=== PATIENT | female | born 1960 | race Caucasian/White ===

== ENCOUNTER 2016-11-26 19:57 | Emergency (ER) | payer SELFPAY ==
[2016-11-26] MEDS ORDERED: Ondansetron ODT 4 MG TAB ONE (20:43)
[2016-11-26] MEDS ORDERED: Naproxen 500 MG TAB ONE (20:43)
[2016-11-26] MEDS ORDERED: HYDROcodone/Acetaminophen 10/325 mg Tablet ONE (20:43)
--- NOTE | 2016-11-26 21:28 | RAD ---
LEFT SHOULDER THREE VIEWS: History: Injury. Pain. FINDINGS: Proximal humerus fracture without significant displacement. Glenohumeral joint space appears to be p reserved. No definite dislocation. Visualized left ribs are unremarkable. IMPRESSION: Proximal left humerus fracture. POS: [facility]
--- NOTE | 2016-11-26 21:30 | RAD ---
LEFT SHOULDER TWO VIEWS: History: Injury. Pain. FINDINGS: Proximal humerus fracture, without displacement. IMPRESSION: Proximal humerus fracture. POS: [facility]
== END 2016-11-26 20:46 | disposition home or self-care (01) ==
LOC: MADERS 19:57
DX: S42.202A Unspecified fracture of upper end of left humerus, initial encounter for closed fracture (principal); Z86.73 Personal history of transient ischemic attack (TIA), and cerebral infarction without residual deficits; F17.210 Nicotine dependence, cigarettes, uncomplicated; V80.010A Animal-rider injured by fall from or being thrown from horse in noncollision accident, initial encounter
CPT/HCPCS: Q0162

== ENCOUNTER 2018-05-22 12:55 | Emergency (ER) | payer SELFPAY ==
[2018-05-22 13:27] LABS: Bilirubin Negative (Negative); Blood, Urine Large (Negative); Clarity Clear (Clear); Glucose, Urine (Dipstick) Negative (Negative); Leukocyte Negative (Negative); Nitrite Negative (Negative); Protein, Urine (Dipstick) 30 mg/dL (Neg-Trace); Specific Gravity, Urine 1.025 (1.005-1.030); Urobilinogen 0.2 mg/dL (0.2-1.0)
[2018-05-22 13:36] LABS: Bacteria/HPF Rare-Few HPF (None Seen); Squamous Epithelial 0-3 HPF (0-3); WBC/HPF 0-3 HPF (0-3)
[2018-05-22 13:37] LABS: Amphetamine Not Detected (NotDetected); Barbiturates Screen Not Detected (NotDetected); Benzodiazepine Screen Not Detected (NotDetected); Cocaine Metabolite Screen Not Detected (NotDetected); Medtox Control Line Valid? VALID (VALID); Methadone Not Detected (NotDetected); Methamphetamine Not Detected (NotDetected); Opiate Screen Not Detected (NotDetected); Oxycodone Screen Not Detected (NotDetected); Phencyclidine (PCP) Not Detected (NotDetected); THC/Cannabinoid Screen Not Detected (NotDetected); Tricyclic Screen Not Detected (NotDetected)
[2018-05-22] MEDS ORDERED: cloNIDine 0.1 MG TAB ONE (13:38)
[2018-05-22] MEDS ORDERED: Ondansetron ODT 4 MG TAB ONE (13:38)
[2018-05-22 13:52] LABS: #Basophils 0.1 thou/uL (0.0-0.2); #Lymphocytes 0.7 thou/uL (1.20-3.40); #Monocytes 0.6 thou/uL (0.11-0.59); #Neutrophils 5.4 thou/uL (1.40-6.50); %Eosinophils 0.5 % (0.0-10.0); %Lymphocytes 10.7 % (21.0-51.0); %Neutrophils 79.8 % (42.0-75.0); Hemoglobin 14.5 g/dL (12.0-16.0); Mean Corpuscular HGB CONC 32.4 g/dL (32.0-36.0); Mean Corpuscular Hemoglobin 31.3 pg (27.0-31.0); Mean Corpuscular Volume 96.6 fL (78.0-98.0); Mean Platelet Volume 5.9 fL (7.4-10.4); Platelet Count 206 thou/uL (130-400); RBC Distribution Width 14.5 % (11.5-14.5); Red Blood Cell (RBC) Count 4.61 mill/uL (4.20-5.40); White Blood Cell (WBC) Count 6.8 thou/uL (4.8-10.8)
[2018-05-22 14:14] LABS: ALT (SGPT) 27 U/L (8-55); AST (SGOT) 24 U/L (5-34); Alkaline Phosphatase 118 U/L (40-150); Anion Gap 14 mmol/L (10-20); BUN (Urea Nitrogen) 11 mg/dL (9.8-20.1); Bilirubin, Total 0.7 mg/dL (0.2-1.2); Calc. Creatinine Clearance 0 mL/min (70-130); Calcium 9.5 mg/dL (7.8-10.44); Carbon Dioxide 30 mmol/L (22-29); Chloride 100 mmol/L (98-107); Estimated GFR-MDRD 79; Globulin 3.4 g/dL (2.4-3.5); Glucose 189 mg/dL (70-105); Potassium 3.6 mmol/L (3.5-5.1); Protein, Total 7.4 g/dL (6.0-8.3); Sodium 140 mmol/L (136-145)
== END 2018-05-22 14:40 | disposition home or self-care (01) ==
LOC: MADERS 12:55
DX: F41.1 Generalized anxiety disorder (principal); R73.9 Hyperglycemia, unspecified; F17.210 Nicotine dependence, cigarettes, uncomplicated; Z86.73 Personal history of transient ischemic attack (TIA), and cerebral infarction without residual deficits
CPT/HCPCS: 36415; 80053; 80306; 81003; 81015; 85025; 99283; Q0162

== ENCOUNTER 2019-03-05 20:12 | Emergency (ER) | payer SELFPAY | END 2019-03-05 20:59 | disposition short-term general hospital (02) | LOC: MADERS 20:12 | DX: M79.89 Other specified soft tissue disorders (principal); Z86.73 Personal history of transient ischemic attack (TIA), and cerebral infarction without residual deficits; F17.210 Nicotine dependence, cigarettes, uncomplicated; Z79.899 Other long term (current) drug therapy | CPT/HCPCS: 99284 ==

== ENCOUNTER 2019-09-18 10:54 | Emergency (ER) | payer SELFPAY ==
--- NOTE | 2019-09-18 12:35 | CT ---
Exam: Chest CT scan without IV contrast: HISTORY: Injury from a fall several months ago with right rib pain FINDINGS: There is evidence for healed fractures involving the right ninth and 10th ribs. No pneumothorax or pl eural effusion. No evidence for acute rib fracture. Mediastinum is unremarkable. No mediastinal mass or adenopathy. Small hiatal hernia. No pleural effusion or pericardial effusion. There is noted to be very severe dilatation of the left upper renal collecting system with associated hydronephrosis etiology of which is uncertain from this study which only includes the abdomen. Cholel ithiasis without evidence for acute cholecystitis. IMPRESSION: 2 healed right rib fractures. No evidence for acute fracture, pneumothorax, or other acute process in the chest. Very severe left renal hydronephrosis of uncertain etiology. Cholelithiasis without acute cholecystitis.
[2019-09-18] MEDS ORDERED: Morphine 4 MG/ML VIAL ONE (14:17)
--- NOTE | 2019-09-18 14:29 | ULT ---
Renal ultrasound Limited, unilateral left kidney: HISTORY: Abnormal CT COMPARISON: Chest CT scan, 09/18/[address] scan, 11/22/2017 FINDINGS: Left kidney measures 12.3 x 4.0 x 5.8 cm. This exam confirms the severe hydronephrosis seen on the pr ior chest CT. The patient did have hydronephrosis of the left kidney seen on prior abdomen and pelvic CT scan of and evidence for sigmoid colon diverticulitis seen at that time, probably accounting for the hydronephrosis. Follow-up nonemergent abdomen and pelvic CT scan with and without contrast with urography protocol is recommended for further assessment.
[2019-09-18 14:46] LABS: Hemoglobin 16.4 g/dL (12.0-16.0); Mean Corpuscular HGB CONC 31.4 g/dL (32.0-36.0); Mean Corpuscular Hemoglobin 30.4 pg (27.0-31.0); Mean Platelet Volume 6.2 fL (7.4-10.4); Platelet Count 232 thou/uL (130-400); RBC Distribution Width 11.7 % (11.5-14.5); Red Blood Cell (RBC) Count 5.39 mill/uL (4.20-5.40); White Blood Cell (WBC) Count 11.9 thou/uL (4.8-10.8)
[2019-09-18 14:58] LABS: ALT (SGPT) 26 U/L (8-55); AST (SGOT) 28 U/L (5-34); Albumin 4.2 g/dL (3.4-4.8); Alkaline Phosphatase 111 U/L (40-110); Anion Gap 16 mmol/L (10-20); BUN (Urea Nitrogen) 8 mg/dL (9.8-20.1); Bilirubin, Total 0.8 mg/dL (0.2-1.2); Calc. Creatinine Clearance 0 mL/min (70-130); Calcium 9.8 mg/dL (7.8-10.44); Carbon Dioxide 28 mmol/L (23-31); Chloride 92 mmol/L (98-107); Estimated GFR-MDRD 73; Globulin 3.8 g/dL (2.4-3.5); Glucose 125 mg/dL (80-115); Potassium 3.5 mmol/L (3.5-5.1); Sodium 132 mmol/L (136-145)
[2019-09-18 15:24] LABS: Band 18 % (5-11); Lymphocytes 3 % (21-51); MDiff Complete? YES; Monocytes 9 % (0-10); Neutrophil 70 % (42-75); Platelet Morphology Comment Appears Adequate; RBC Morphology Normal
[2019-09-18 17:09] LABS: Bilirubin Negative (Negative); Blood, Urine Large (Negative); Clarity Cloudy (Clear); Glucose, Urine (Dipstick) Negative (Negative); Leukocyte Moderate (Negative); Nitrite Positive (Negative); Protein, Urine (Dipstick) 100 mg/dL (Neg-Trace); Urobilinogen 0.2 mg/dL (Less than 2)
[2019-09-18 17:31] LABS: Bacteria/HPF 1+ HPF (None Seen); Mucous/LPF None Seen LPF (<2+); WBC/HPF Greater Than 50 HPF (0-3)
[2019-09-18] MEDS ORDERED: Sodium Chloride 0.9% 100 ML ONE (18:45)
[2019-09-18] MEDS ORDERED: Sodium Chloride 0.9% 250 ML 250 ML ONE (18:45)
[2019-09-18] MEDS ORDERED: Vancomycin HCl 750 MG VIAL ONE (18:45)
[2019-09-18] MEDS ORDERED: cefTRIAXone\\ROCEPHIN 1 GM VIAL ONE (18:45)
[2019-09-18] MEDS ORDERED: Vancomycin HCl 500 MG VIAL ONE (18:45)
[2019-09-18] MEDS ORDERED: Sodium Chloride 0.9% 2,000 ML ONE (18:45)
[2019-09-18] MEDS ORDERED: Acetaminophen 500 MG TAB ONE (19:14)
== END 2019-09-18 19:30 | disposition short-term general hospital (02) ==
LOC: MADERS 10:54
DX: S20.211A Contusion of right front wall of thorax, initial encounter (principal); N13.30 Unspecified hydronephrosis; N39.0 Urinary tract infection, site not specified; Z86.73 Personal history of transient ischemic attack (TIA), and cerebral infarction without residual deficits; F41.9 Anxiety disorder, unspecified; F17.210 Nicotine dependence, cigarettes, uncomplicated; X50.9XXA Other and unspecified overexertion or strenuous movements or postures, initial encounter
CPT/HCPCS: 71250; 76775; 80053; 81003; 81015; 83605; 83880; 84484; 85025; 87040; 87077; 87149; 87186; 93005; 96361; 96372; 96374; 96375; J0696; J2270; J3370; J3490; J7050

== ENCOUNTER → 2019-09-26 | Day surgery (SDC) | payer SELFPAY ==
[~2019-09-26] MED LIST: Sodium Chloride 0.9% 100 ML BAG ONE; cefTRIAXone\\ROCEPHIN 2 GM VIAL ONE
== END ==
LOC: MADER/OP 11:45
PROVIDERS: ATTEND Internal Medicine Infectious Disease
DX: K57.92 Diverticulitis of intestine, part unspecified, without perforation or abscess without bleeding (principal); R78.81 Bacteremia; Z88.0 Allergy status to penicillin; Z88.1 Allergy status to other antibiotic agents; Z88.2 Allergy status to sulfonamides; Z88.5 Allergy status to narcotic agent
CPT/HCPCS: 96365; J0696; J3490

== ENCOUNTER → 2019-09-27 | Day surgery (SDC) | payer SELFPAY | LOC: MADER/OP 09-26 12:00 | PROVIDERS: ATTEND Internal Medicine Infectious Disease | DX: K57.92 Diverticulitis of intestine, part unspecified, without perforation or abscess without bleeding (principal); R78.81 Bacteremia; Z88.0 Allergy status to penicillin; Z88.1 Allergy status to other antibiotic agents; Z88.2 Allergy status to sulfonamides; Z88.5 Allergy status to narcotic agent | CPT/HCPCS: 96365; J0696; J3490 ==

== ENCOUNTER → 2019-09-28 | Day surgery (SDC) | payer SELFPAY | LOC: MADER/OP 16:57 | PROVIDERS: ATTEND Internal Medicine Infectious Disease | DX: K57.92 Diverticulitis of intestine, part unspecified, without perforation or abscess without bleeding (principal); R78.81 Bacteremia; Z88.0 Allergy status to penicillin; Z88.1 Allergy status to other antibiotic agents; Z88.2 Allergy status to sulfonamides; Z88.5 Allergy status to narcotic agent | CPT/HCPCS: 96365; J0696; J3490 ==

== ENCOUNTER → 2019-09-29 | Day surgery (SDC) | payer SELFPAY ==
[2019-09-29 14:02] LABS: #Basophils 0.2 thou/uL (0.0-0.2); #Eosinphils 0.1 thou/uL (0.0-0.7); #Lymphocytes 2.2 thou/uL (1.20-3.40); #Monocytes 0.9 thou/uL (0.11-0.59); #Neutrophils 6.6 thou/uL (1.40-6.50); %Basophils 1.6 % (0.0-1.0); %Eosinophils 1.1 % (0.0-10.0); %Lymphocytes 22.3 % (21.0-51.0); Hemoglobin 13.1 g/dL (12.0-16.0); Mean Corpuscular HGB CONC 31.6 g/dL (32.0-36.0); Mean Corpuscular Hemoglobin 30.4 pg (27.0-31.0); Mean Corpuscular Volume 96.4 fL (78.0-98.0); Mean Platelet Volume 4.8 fL (7.4-10.4); Platelet Count 681 thou/uL (130-400); Red Blood Cell (RBC) Count 4.32 mill/uL (4.20-5.40); White Blood Cell (WBC) Count 9.9 thou/uL (4.8-10.8)
[2019-09-29 14:15] LABS: ALT (SGPT) 14 U/L (8-55); AST (SGOT) 24 U/L (5-34); Albumin 3.8 g/dL (3.4-4.8); Alkaline Phosphatase 101 U/L (40-110); Anion Gap 15 mmol/L (10-20); BUN (Urea Nitrogen) 10 mg/dL (9.8-20.1); Bilirubin, Total 0.3 mg/dL (0.2-1.2); CRP (Inflammatory) 0.96 mg/dL (= or < 0.5); Calc. Creatinine Clearance 0 mL/min (70-130); Calcium 9.4 mg/dL (7.8-10.44); Carbon Dioxide 27 mmol/L (23-31); Chloride 102 mmol/L (98-107); Estimated GFR-MDRD 79; Globulin 3.8 g/dL (2.4-3.5); Glucose 131 mg/dL (80-115); Potassium 3.5 mmol/L (3.5-5.1); Protein, Total 7.6 g/dL (6.0-8.3); Sodium 140 mmol/L (136-145)
== END ==
LOC: MADER/OP 13:29
PROVIDERS: ATTEND Internal Medicine Infectious Disease
DX: K57.92 Diverticulitis of intestine, part unspecified, without perforation or abscess without bleeding (principal); R78.81 Bacteremia; Z88.0 Allergy status to penicillin; Z88.1 Allergy status to other antibiotic agents; Z88.2 Allergy status to sulfonamides; Z88.5 Allergy status to narcotic agent
CPT/HCPCS: 36415; 80053; 85025; 86140; 96365; J0696; J3490

== ENCOUNTER → 2019-09-30 | Day surgery (SDC) | payer SELFPAY | LOC: MADER/OP 13:38 | PROVIDERS: ATTEND Internal Medicine Infectious Disease | DX: K57.92 Diverticulitis of intestine, part unspecified, without perforation or abscess without bleeding (principal); R78.81 Bacteremia; Z88.0 Allergy status to penicillin; Z88.1 Allergy status to other antibiotic agents; Z88.2 Allergy status to sulfonamides; Z88.5 Allergy status to narcotic agent | CPT/HCPCS: J0696; J3490 ==

== ENCOUNTER → 2019-10-01 | Day surgery (SDC) | payer SELFPAY | LOC: MADER/OP 13:24 | PROVIDERS: ATTEND Internal Medicine Infectious Disease | DX: K57.92 Diverticulitis of intestine, part unspecified, without perforation or abscess without bleeding (principal); R78.81 Bacteremia; Z88.0 Allergy status to penicillin; Z88.1 Allergy status to other antibiotic agents; Z88.2 Allergy status to sulfonamides; Z88.5 Allergy status to narcotic agent | CPT/HCPCS: 96365; J0696; J3490 ==

== ENCOUNTER → 2019-10-02 | Day surgery (SDC) | payer SELFPAY | LOC: MADER/OP 16:04 | PROVIDERS: ATTEND Internal Medicine Infectious Disease | DX: K57.92 Diverticulitis of intestine, part unspecified, without perforation or abscess without bleeding (principal); R78.81 Bacteremia; Z88.0 Allergy status to penicillin; Z88.1 Allergy status to other antibiotic agents; Z88.2 Allergy status to sulfonamides; Z88.5 Allergy status to narcotic agent | CPT/HCPCS: 96365; J0696; J3490 ==

== ENCOUNTER → 2019-10-03 | Day surgery (SDC) | payer SELFPAY | LOC: MADER/OP 19:25 | PROVIDERS: ATTEND Internal Medicine Infectious Disease | DX: K57.92 Diverticulitis of intestine, part unspecified, without perforation or abscess without bleeding (principal); R78.81 Bacteremia; Z88.0 Allergy status to penicillin; Z88.1 Allergy status to other antibiotic agents; Z88.2 Allergy status to sulfonamides; Z88.5 Allergy status to narcotic agent | CPT/HCPCS: 96365; J0696; J3490 ==

== ENCOUNTER → 2019-10-04 | Day surgery (SDC) | payer SELFPAY | LOC: MADER/OP 15:57 | PROVIDERS: ATTEND Internal Medicine Infectious Disease | DX: K57.92 Diverticulitis of intestine, part unspecified, without perforation or abscess without bleeding (principal); R78.81 Bacteremia; Z88.0 Allergy status to penicillin; Z88.1 Allergy status to other antibiotic agents; Z88.2 Allergy status to sulfonamides; Z88.5 Allergy status to narcotic agent | CPT/HCPCS: 96365; J0696; J3490 ==

== ENCOUNTER → 2019-10-05 | Day surgery (SDC) | payer SELFPAY | LOC: MADER/OP 20:33 | PROVIDERS: ATTEND Internal Medicine Infectious Disease | DX: K57.92 Diverticulitis of intestine, part unspecified, without perforation or abscess without bleeding (principal); R78.81 Bacteremia; Z88.0 Allergy status to penicillin; Z88.1 Allergy status to other antibiotic agents; Z88.2 Allergy status to sulfonamides; Z88.5 Allergy status to narcotic agent | CPT/HCPCS: J0696; J3490 ==

== ENCOUNTER → 2019-10-06 | Day surgery (SDC) | payer SELFPAY ==
[2019-10-06 19:54] LABS: #Basophils 0.1 thou/uL (0.0-0.2); #Eosinphils 0.1 thou/uL (0.0-0.7); #Lymphocytes 1.9 thou/uL (1.20-3.40); #Monocytes 0.7 thou/uL (0.11-0.59); #Neutrophils 5.1 thou/uL (1.40-6.50); %Basophils 1.7 % (0.0-1.0); %Eosinophils 1.1 % (0.0-10.0); %Lymphocytes 23.6 % (21.0-51.0); %Monocytes 9.1 % (0.0-10.0); %Neutrophils 64.5 % (42.0-75.0); Mean Corpuscular HGB CONC 32.6 g/dL (32.0-36.0); Mean Corpuscular Hemoglobin 31.4 pg (27.0-31.0); Mean Corpuscular Volume 96.4 fL (78.0-98.0); Mean Platelet Volume 5.6 fL (7.4-10.4); Platelet Count 517 thou/uL (130-400); RBC Distribution Width 12.1 % (11.5-14.5); Red Blood Cell (RBC) Count 4.13 mill/uL (4.20-5.40); White Blood Cell (WBC) Count 7.8 thou/uL (4.8-10.8)
[2019-10-06 20:08] LABS: ALT (SGPT) 18 U/L (8-55); AST (SGOT) 21 U/L (5-34); Albumin 3.9 g/dL (3.4-4.8); Alkaline Phosphatase 95 U/L (40-110); Anion Gap 16 mmol/L (10-20); BUN (Urea Nitrogen) 9 mg/dL (9.8-20.1); Bilirubin, Total Less than 0.2 mg/dL (0.2-1.2); CRP (Inflammatory) Less than 0.50 mg/dL (= or < 0.5); Calc. Creatinine Clearance 0 mL/min (70-130); Calcium 9.5 mg/dL (7.8-10.44); Carbon Dioxide 25 mmol/L (23-31); Chloride 103 mmol/L (98-107); Estimated GFR-MDRD 74; Globulin 3.8 g/dL (2.4-3.5); Glucose 105 mg/dL (80-115); Potassium 3.4 mmol/L (3.5-5.1); Protein, Total 7.7 g/dL (6.0-8.3); Sodium 141 mmol/L (136-145)
== END ==
LOC: MADER/OP 19:23
PROVIDERS: ATTEND Internal Medicine Infectious Disease
DX: K57.92 Diverticulitis of intestine, part unspecified, without perforation or abscess without bleeding (principal); R78.81 Bacteremia; Z88.0 Allergy status to penicillin; Z88.1 Allergy status to other antibiotic agents; Z88.2 Allergy status to sulfonamides; Z88.5 Allergy status to narcotic agent
CPT/HCPCS: 80053; 85025; 86140; J0696; J3490

== ENCOUNTER → 2019-10-08 | Day surgery (SDC) | payer SELFPAY | END | disposition home or self-care (01) | LOC: MADER/OP 16:46 | PROVIDERS: ATTEND Internal Medicine Infectious Disease | DX: R78.81 Bacteremia (principal); Z79.2 Long term (current) use of antibiotics; Z88.0 Allergy status to penicillin; Z88.2 Allergy status to sulfonamides; Z88.5 Allergy status to narcotic agent; Z88.8 Allergy status to other drugs, medicaments and biological substances | CPT/HCPCS: J0696; J3490 ==

== ENCOUNTER → 2019-10-09 | Day surgery (SDC) | payer SELFPAY | LOC: MADER/OP 19:57 | PROVIDERS: ATTEND Internal Medicine Infectious Disease | DX: K57.92 Diverticulitis of intestine, part unspecified, without perforation or abscess without bleeding (principal); R78.81 Bacteremia; Z88.0 Allergy status to penicillin; Z88.1 Allergy status to other antibiotic agents; Z88.2 Allergy status to sulfonamides; Z88.5 Allergy status to narcotic agent | CPT/HCPCS: J0696; J3490 ==

== ENCOUNTER → 2019-10-11 | Day surgery (SDC) | payer SELFPAY | LOC: MADER/OP 11:45 | PROVIDERS: ATTEND Internal Medicine Infectious Disease | DX: K57.92 Diverticulitis of intestine, part unspecified, without perforation or abscess without bleeding (principal); R78.81 Bacteremia; Z88.0 Allergy status to penicillin; Z88.1 Allergy status to other antibiotic agents; Z88.2 Allergy status to sulfonamides; Z88.5 Allergy status to narcotic agent | CPT/HCPCS: 96365; J0696; J3490 ==

== ENCOUNTER → 2019-10-13 | Day surgery (SDC) | payer SELFPAY ==
[2019-10-13 17:27] LABS: ALT (SGPT) 22 U/L (8-55); AST (SGOT) 31 U/L (5-34); Albumin 4.3 g/dL (3.4-4.8); Alkaline Phosphatase 114 U/L (40-110); Anion Gap 19 mmol/L (10-20); BUN (Urea Nitrogen) 10 mg/dL (9.8-20.1); Bilirubin, Total 0.4 mg/dL (0.2-1.2); CRP (Inflammatory) 0.68 mg/dL (= or < 0.5); Calc. Creatinine Clearance 0 mL/min (70-130); Calcium 9.7 mg/dL (7.8-10.44); Carbon Dioxide 22 mmol/L (23-31); Chloride 103 mmol/L (98-107); Estimated GFR-MDRD 89; Glucose 86 mg/dL (80-115); Protein, Total 8.3 g/dL (6.0-8.3); Sodium 140 mmol/L (136-145)
[2019-10-13 17:38] LABS: #Basophils 0.1 thou/uL (0.0-0.2); #Eosinphils 0.2 thou/uL (0.0-0.7); #Lymphocytes 2.9 thou/uL (1.20-3.40); #Monocytes 0.7 thou/uL (0.11-0.59); #Neutrophils 3.6 thou/uL (1.40-6.50); %Basophils 0.9 % (0.0-1.0); %Monocytes 9.8 % (0.0-10.0); %Neutrophils 48.3 % (42.0-75.0); Hemoglobin 13.8 g/dL (12.0-16.0); Mean Corpuscular HGB CONC 31.7 g/dL (32.0-36.0); Mean Corpuscular Hemoglobin 30.7 pg (27.0-31.0); Mean Corpuscular Volume 96.9 fL (78.0-98.0); Mean Platelet Volume 6.7 fL (7.4-10.4); Platelet Count 321 thou/uL (130-400); RBC Distribution Width 12.2 % (11.5-14.5); Red Blood Cell (RBC) Count 4.49 mill/uL (4.20-5.40); White Blood Cell (WBC) Count 7.4 thou/uL (4.8-10.8)
== END ==
LOC: MADER/OP 10-12 21:16
PROVIDERS: ATTEND Internal Medicine Infectious Disease
DX: K57.92 Diverticulitis of intestine, part unspecified, without perforation or abscess without bleeding (principal); R78.81 Bacteremia; Z88.0 Allergy status to penicillin; Z88.1 Allergy status to other antibiotic agents; Z88.2 Allergy status to sulfonamides; Z88.5 Allergy status to narcotic agent
CPT/HCPCS: 36415; 80053; 85025; 86140; 96365; J0696; J3490

== ENCOUNTER → 2019-10-14 | Day surgery (SDC) | payer SELFPAY | LOC: MADER/OP 22:10 | PROVIDERS: ATTEND Internal Medicine Infectious Disease | DX: K57.92 Diverticulitis of intestine, part unspecified, without perforation or abscess without bleeding (principal); R78.81 Bacteremia; Z88.0 Allergy status to penicillin; Z88.1 Allergy status to other antibiotic agents; Z88.2 Allergy status to sulfonamides; Z88.5 Allergy status to narcotic agent | CPT/HCPCS: 96365; J0696; J3490 ==

== ENCOUNTER 2019-12-24 15:27 | Emergency (ER) | payer SELFPAY, OTHER ==
[~2019-12-24 15:27] MED LIST changes: +Iopamidol 370 76% 100 ML VIAL ONE; -Sodium Chloride 0.9% 100 ML BAG ONE; -cefTRIAXone\\ROCEPHIN 2 GM VIAL ONE
[2019-12-24] MEDS ORDERED: Dextrose 5% in Water 250 ML ONE (16:28)
[2019-12-24] MEDS ORDERED: Sodium Chloride 0.9% 1,000 ML ONE (16:28)
[2019-12-24] MEDS ORDERED: Sodium Chloride 0.9% 100 ML ONE (16:28)
[2019-12-24] MEDS ORDERED: Cefepime 2 GM VIAL ONE (16:29)
[2019-12-24] MEDS ORDERED: Acetaminophen 500 MG TAB ONE (16:29)
[2019-12-24 16:31] LABS: #Basophils 0.1 thou/uL (0.0-0.2); #Lymphocytes 1.1 thou/uL (1.20-3.40); #Monocytes 1.4 thou/uL (0.11-0.59); #Neutrophils 11.6 thou/uL (1.40-6.50); %Basophils 0.4 % (0.0-1.0); %Eosinophils 0.1 % (0.0-10.0); %Lymphocytes 7.5 % (21.0-51.0); %Monocytes 9.7 % (0.0-10.0); %Neutrophils 82.2 % (42.0-75.0); Hemoglobin 13.5 g/dL (12.0-16.0); Mean Corpuscular HGB CONC 32.4 g/dL (32.0-36.0); Mean Corpuscular Hemoglobin 31.9 pg (27.0-31.0); Mean Corpuscular Volume 98.3 fL (78.0-98.0); Mean Platelet Volume 5.7 fL (7.4-10.4); Platelet Count 380 thou/uL (130-400); RBC Distribution Width 13.3 % (11.5-14.5); Red Blood Cell (RBC) Count 4.23 mill/uL (4.20-5.40); White Blood Cell (WBC) Count 14.1 thou/uL (4.8-10.8)
[2019-12-24 16:35] LABS: Bilirubin Small (Negative); Blood, Urine Large (Negative); Clarity Clear (Clear); Glucose, Urine (Dipstick) Negative (Negative); Leukocyte Negative (Negative); Nitrite Positive (Negative); Protein, Urine (Dipstick) 30 mg/dL (Neg-Trace); Urobilinogen 0.2 mg/dL (Less than 2)
[2019-12-24 16:37] LABS: ALT (SGPT) 9 U/L (8-55); AST (SGOT) 14 U/L (5-34); Albumin 3.5 g/dL (3.4-4.8); Alkaline Phosphatase 112 U/L (40-110); Anion Gap 15 mmol/L (10-20); BUN (Urea Nitrogen) 7 mg/dL (9.8-20.1); Bilirubin, Total 0.8 mg/dL (0.2-1.2); CK (CPK) 33 U/L (29-168); Calc. Creatinine Clearance 0 mL/min (70-130); Calcium 8.8 mg/dL (7.8-10.44); Carbon Dioxide 25 mmol/L (23-31); Chloride 100 mmol/L (98-107); Estimated GFR-MDRD Greater than 90; Globulin 3.6 g/dL (2.4-3.5); Glucose 129 mg/dL (80-115); Potassium 3.4 mmol/L (3.5-5.1); Protein, Total 7.1 g/dL (6.0-8.3); Sodium 137 mmol/L (136-145)
[2019-12-24 16:41] LABS: Bacteria/HPF Rare-Few HPF (None Seen); RBC/HPF 21-50 HPF (0-3); WBC/HPF 0-3 HPF (0-3)
[2019-12-24 16:42] LABS: Mucous/LPF 2+ LPF (<2+)
[2019-12-24] MEDS ORDERED: Fentanyl 100 MCG/2 ML VIAL ONE (18:05)
--- NOTE | 2019-12-24 21:42 | CT ---
CT ABDOMEN AND PELVIS 12/24/19 COMPARISON: 12/02/19 HISTORY: Left lower quadrant pain, fever, prior colostomy. TECHNIQUE: Axial CT imaging obtained at 5 mm intervals from lung bases through pubic symphysis with intravenous contrast. Coronal and sagittal reformatted imaging obtained. FINDINGS: The imaged lung bases appear grossly unremarkable bilaterally. Cholecystectomy clips are present. No free intraperitoneal air. There is a focal area of hyperenhancement involving the ventral aspect of the left lobe of the liver measuring 5 mm on image 14, stable, likely on the basis of a flash filling hemangioma/vascular lesion . The spleen, pancreas, adrenal glands, and right kidney appear unremarkable. There is a nephrostomy tube on the left terminating in the region of the left renal hilum. There is a colostomy in the left lower quadrant. The lack of enteric contrast media limits detailed a ssessment of the bowel. A suture line is noted within the left lower quadrant on axial image 58, like ly associated with the distal aspect of a Loera's pouch. There is no evidence for small bowel obst ruction. A rim enhancing fluid collection with internal foci of gas and surrounding inflammatory mesenteric fa t stranding is noted in the left lower quadrant anterior to the above described suture line. This flu id collection measures 5.8 x 4.8 x 6.4 cm and is highly suspicious for a left lower quadrant abscess. Within the posterior aspect of the pelvis left of midline on axial image 63 is a 1.9 cm fluid collec tion, likely on the basis of an additional smaller abscess. In addition, there is a 2.0 cm fluid luis alberto ection within the inferior anterior aspect of the pelvis on the left, best seen on axial image 66 med ial to the acetabulum suggesting a third abscess. Subtle fluid density in the posterior right hemipel vis on image 67 measures 1.3 cm and may signify small volume free fluid or an additional developing abscess. The vascular structures of the abdomen/pelvis appear patent. No discrete lymphadenopathy noted within abdomen/pelvis. Osseous structures demonstrate severe multilevel lumbar spine degenerative change with multilevel pro minent disc space narrowing and osteophyte formation. No worrisome lytic or blastic bone lesion. IMPRESSION: The patient is status post left lower quadrant colostomy with Loera's pouch. There is a gas contain ing rim enhancing fluid collection within the left lower quadrant measuring up to 6.4 cm, consistent with left lower quadrant abscess. There are three additional small fluid collections within the pelvi s suggesting additional developing abscesses. The largest fluid collection appears amenable to CT devon dance drainage while the other three fluid collections at this point are too small for percutaneous d rainage. Recommend surgical consultation. POS: [facility]
== END 2019-12-24 19:35 | disposition short-term general hospital (02) ==
LOC: MADERS 15:27
DX: K65.1 Peritoneal abscess (principal); F17.210 Nicotine dependence, cigarettes, uncomplicated; F41.9 Anxiety disorder, unspecified; Z86.73 Personal history of transient ischemic attack (TIA), and cerebral infarction without residual deficits; Z79.899 Other long term (current) drug therapy
CPT/HCPCS: 74177; 80053; 81003; 81015; 82550; 83605; 85025; 87040; 87086; 96365; 96366; 96367; 96375; J0692; J3010; J3370; J3490; J7050; J7070; Q9967

== ENCOUNTER → 2020-01-01 | Day surgery (SDC) | payer SELFPAY ==
[~2020-01-01] MED LIST changes: +Ampicillin/Sulbactam 3 GM VIAL ONE; -Iopamidol 370 76% 100 ML VIAL ONE; +Sodium Chloride 0.9% 100 ML BAG ONE
== END ==
LOC: MADER/OP 19:56
PROVIDERS: ATTEND Family Medicine
DX: L02.211 Cutaneous abscess of abdominal wall (principal); Z88.0 Allergy status to penicillin; Z88.1 Allergy status to other antibiotic agents; Z88.2 Allergy status to sulfonamides; Z88.5 Allergy status to narcotic agent
CPT/HCPCS: J0295; J3490

== ENCOUNTER → 2020-01-01 | Day surgery (SDC) | payer SELFPAY | LOC: MADER/OP 13:20 | PROVIDERS: ATTEND Internal Medicine Infectious Disease | DX: L02.211 Cutaneous abscess of abdominal wall (principal); Z88.0 Allergy status to penicillin; Z88.1 Allergy status to other antibiotic agents; Z88.2 Allergy status to sulfonamides; Z88.5 Allergy status to narcotic agent | CPT/HCPCS: J0295; J1642; J3490 ==

== ENCOUNTER → 2020-01-01 | Day surgery (SDC) | payer SELFPAY | LOC: MADER/OP 07:10 | PROVIDERS: ATTEND Internal Medicine Infectious Disease | DX: L02.211 Cutaneous abscess of abdominal wall (principal); Z88.0 Allergy status to penicillin; Z88.1 Allergy status to other antibiotic agents; Z88.2 Allergy status to sulfonamides; Z88.5 Allergy status to narcotic agent | CPT/HCPCS: J0295; J1642; J3490 ==

== ENCOUNTER → 2020-01-02 | Day surgery (SDC) | payer SELFPAY | LOC: MADER/OP 09:57 | PROVIDERS: ATTEND Internal Medicine Infectious Disease | DX: L02.211 Cutaneous abscess of abdominal wall (principal); Z88.0 Allergy status to penicillin; Z88.1 Allergy status to other antibiotic agents; Z88.2 Allergy status to sulfonamides; Z88.5 Allergy status to narcotic agent | CPT/HCPCS: J0295; J1642; J3490 ==

== ENCOUNTER → 2020-01-02 | Day surgery (SDC) | payer SELFPAY | LOC: MADER/OP 03:48 | PROVIDERS: ATTEND Family Medicine | DX: L02.211 Cutaneous abscess of abdominal wall (principal); Z88.0 Allergy status to penicillin; Z88.1 Allergy status to other antibiotic agents; Z88.2 Allergy status to sulfonamides; Z88.5 Allergy status to narcotic agent | CPT/HCPCS: J0295; J3490 ==

== ENCOUNTER → 2020-01-08 | Day surgery (SDC) | payer SELFPAY ==
[~2020-01-08] MED LIST changes: -Ampicillin/Sulbactam 3 GM VIAL ONE; -Sodium Chloride 0.9% 100 ML BAG ONE; +Vancomycin 1.5 GRAM/300 ML BAG ONE
== END ==
LOC: MADER/OP 15:45
PROVIDERS: ATTEND Internal Medicine Infectious Disease
DX: L02.211 Cutaneous abscess of abdominal wall (principal); Z88.0 Allergy status to penicillin; Z88.1 Allergy status to other antibiotic agents; Z88.2 Allergy status to sulfonamides; Z88.5 Allergy status to narcotic agent
CPT/HCPCS: J3370

== ENCOUNTER → 2020-01-09 | Day surgery (SDC) | payer SELFPAY | LOC: MADER/OP 17:01 | PROVIDERS: ATTEND Internal Medicine Infectious Disease | DX: L02.211 Cutaneous abscess of abdominal wall (principal); Z88.0 Allergy status to penicillin; Z88.1 Allergy status to other antibiotic agents; Z88.2 Allergy status to sulfonamides; Z88.5 Allergy status to narcotic agent | CPT/HCPCS: J3370 ==

== ENCOUNTER → 2020-01-10 | Day surgery (SDC) | payer SELFPAY | LOC: MADER/OP 18:19 | PROVIDERS: ATTEND Internal Medicine Infectious Disease | DX: L02.211 Cutaneous abscess of abdominal wall (principal); Z88.0 Allergy status to penicillin; Z88.1 Allergy status to other antibiotic agents; Z88.2 Allergy status to sulfonamides; Z88.5 Allergy status to narcotic agent | CPT/HCPCS: J3370 ==

== ENCOUNTER → 2020-01-12 | Day surgery (SDC) | payer SELFPAY | LOC: MADER/OP 18:38 | PROVIDERS: ATTEND Internal Medicine Infectious Disease | DX: L02.211 Cutaneous abscess of abdominal wall (principal); Z88.0 Allergy status to penicillin; Z88.1 Allergy status to other antibiotic agents; Z88.2 Allergy status to sulfonamides; Z88.5 Allergy status to narcotic agent | CPT/HCPCS: J3370 ==

== ENCOUNTER → 2020-01-13 | Day surgery (SDC) | payer SELFPAY | LOC: MADER/OP 14:54 | PROVIDERS: ATTEND Internal Medicine Infectious Disease | DX: L02.211 Cutaneous abscess of abdominal wall (principal); Z88.0 Allergy status to penicillin; Z88.1 Allergy status to other antibiotic agents; Z88.2 Allergy status to sulfonamides; Z88.5 Allergy status to narcotic agent | CPT/HCPCS: J3370 ==

== ENCOUNTER → 2020-01-15 | Day surgery (SDC) | payer SELFPAY | LOC: MADER/OP 16:29 | PROVIDERS: ATTEND Internal Medicine Infectious Disease | DX: L02.211 Cutaneous abscess of abdominal wall (principal); Z88.0 Allergy status to penicillin; Z88.1 Allergy status to other antibiotic agents; Z88.2 Allergy status to sulfonamides; Z88.5 Allergy status to narcotic agent | CPT/HCPCS: J3370 ==

== ENCOUNTER → 2020-01-16 | Day surgery (SDC) | payer SELFPAY | LOC: MADER/OP 19:53 | PROVIDERS: ATTEND Internal Medicine Infectious Disease | DX: L02.211 Cutaneous abscess of abdominal wall (principal); Z88.0 Allergy status to penicillin; Z88.1 Allergy status to other antibiotic agents; Z88.2 Allergy status to sulfonamides; Z88.5 Allergy status to narcotic agent | CPT/HCPCS: J3370 ==

== ENCOUNTER → 2020-01-17 | Day surgery (SDC) | payer SELFPAY | LOC: MADER/OP 16:45 | PROVIDERS: ATTEND Internal Medicine Infectious Disease | DX: L02.211 Cutaneous abscess of abdominal wall (principal); Z88.0 Allergy status to penicillin; Z88.1 Allergy status to other antibiotic agents; Z88.2 Allergy status to sulfonamides; Z88.5 Allergy status to narcotic agent | CPT/HCPCS: J3370 ==

== ENCOUNTER → 2020-01-18 | Day surgery (SDC) | payer SELFPAY | LOC: MADER/OP 12:15 | PROVIDERS: ATTEND Internal Medicine Infectious Disease | DX: L02.211 Cutaneous abscess of abdominal wall (principal); Z88.0 Allergy status to penicillin; Z88.1 Allergy status to other antibiotic agents; Z88.2 Allergy status to sulfonamides; Z88.5 Allergy status to narcotic agent | CPT/HCPCS: J3370 ==

== ENCOUNTER → 2020-01-19 | Day surgery (SDC) | payer SELFPAY ==
[2020-01-19 21:58] LABS: #Basophils 0.2 thou/uL (0.0-0.2); #Eosinphils 0.2 thou/uL (0.0-0.7); #Monocytes 1.2 thou/uL (0.11-0.59); #Neutrophils 8.1 thou/uL (1.40-6.50); %Basophils 1.3 % (0.0-1.0); %Eosinophils 1.3 % (0.0-10.0); %Lymphocytes 23.7 % (21.0-51.0); %Monocytes 9.3 % (0.0-10.0); %Neutrophils 64.4 % (42.0-75.0); Hemoglobin 13.4 g/dL (12.0-16.0); Mean Corpuscular HGB CONC 31.8 g/dL (32.0-36.0); Mean Corpuscular Hemoglobin 30.3 pg (27.0-31.0); Mean Corpuscular Volume 95.3 fL (78.0-98.0); Mean Platelet Volume 6.3 fL (7.4-10.4); Platelet Count 445 thou/uL (130-400); RBC Distribution Width 12.9 % (11.5-14.5); Red Blood Cell (RBC) Count 4.44 mill/uL (4.20-5.40); White Blood Cell (WBC) Count 12.6 thou/uL (4.8-10.8)
[2020-01-19 22:10] LABS: Vancomycin, Trough 5.6 ug/mL
[2020-01-19 22:44] LABS: ALT (SGPT) 20 U/L (8-55); AST (SGOT) 20 U/L (5-34); Albumin 4.3 g/dL (3.4-4.8); Alkaline Phosphatase 101 U/L (40-110); Anion Gap 16 mmol/L (10-20); BUN (Urea Nitrogen) 9 mg/dL (9.8-20.1); Bilirubin, Total 0.2 mg/dL (0.2-1.2); CRP (Inflammatory) 2.67 mg/dL (= or < 0.5); Calc. Creatinine Clearance 0 mL/min (70-130); Calcium 10.3 mg/dL (7.8-10.44); Carbon Dioxide 25 mmol/L (23-31); Chloride 101 mmol/L (98-107); Estimated GFR-MDRD 88; Globulin 4.2 g/dL (2.4-3.5); Glucose 92 mg/dL (80-115); Potassium 4.4 mmol/L (3.5-5.1); Protein, Total 8.5 g/dL (6.0-8.3); Sodium 138 mmol/L (136-145)
== END ==
LOC: MADLAB 20:24
PROVIDERS: ATTEND Internal Medicine Infectious Disease
DX: L02.211 Cutaneous abscess of abdominal wall (principal); Z88.0 Allergy status to penicillin; Z88.1 Allergy status to other antibiotic agents; Z88.2 Allergy status to sulfonamides; Z88.5 Allergy status to narcotic agent
CPT/HCPCS: 80053; 80202; 85025; 86140; J3370

== ENCOUNTER → 2020-01-22 | Day surgery (SDC) | payer SELFPAY | LOC: MADER/OP 08:30 | PROVIDERS: ATTEND Internal Medicine Infectious Disease | DX: L02.211 Cutaneous abscess of abdominal wall (principal); Z88.0 Allergy status to penicillin; Z88.1 Allergy status to other antibiotic agents; Z88.2 Allergy status to sulfonamides; Z88.5 Allergy status to narcotic agent | CPT/HCPCS: J3370 ==

== ENCOUNTER → 2020-01-24 | Day surgery (SDC) | payer SELFPAY | LOC: MADER/OP 11:32 | PROVIDERS: ATTEND Internal Medicine Infectious Disease | DX: L02.211 Cutaneous abscess of abdominal wall (principal); Z88.0 Allergy status to penicillin; Z88.1 Allergy status to other antibiotic agents; Z88.2 Allergy status to sulfonamides; Z88.5 Allergy status to narcotic agent | CPT/HCPCS: J3370 ==

== ENCOUNTER → 2020-01-25 | Day surgery (SDC) | payer SELFPAY | LOC: MADER/OP 14:49 | PROVIDERS: ATTEND Family Medicine | DX: L02.211 Cutaneous abscess of abdominal wall (principal); Z88.0 Allergy status to penicillin; Z88.1 Allergy status to other antibiotic agents; Z88.2 Allergy status to sulfonamides; Z88.5 Allergy status to narcotic agent | CPT/HCPCS: J3370 ==

== ENCOUNTER → 2020-01-26 | Day surgery (SDC) | payer SELFPAY ==
[2020-01-26 15:45] LABS: #Basophils 0.1 thou/uL (0.0-0.2); #Neutrophils 12.8 thou/uL (1.40-6.50); %Basophils 0.6 % (0.0-1.0); %Eosinophils 0.3 % (0.0-10.0); %Lymphocytes 12.3 % (21.0-51.0); %Monocytes 6.4 % (0.0-10.0); %Neutrophils 80.4 % (42.0-75.0); Hemoglobin 13.1 g/dL (12.0-16.0); Mean Corpuscular HGB CONC 31.4 g/dL (32.0-36.0); Mean Corpuscular Volume 95.4 fL (78.0-98.0); Platelet Count 309 thou/uL (130-400); RBC Distribution Width 12.8 % (11.5-14.5); Red Blood Cell (RBC) Count 4.37 mill/uL (4.20-5.40); White Blood Cell (WBC) Count 15.9 thou/uL (4.8-10.8)
[2020-01-26 15:55] LABS: Vancomycin, Trough 8.2 ug/mL
[2020-01-26 16:00] LABS: ALT (SGPT) 12 U/L (8-55); AST (SGOT) 15 U/L (5-34); Alkaline Phosphatase 112 U/L (40-110); Anion Gap 15 mmol/L (10-20); BUN (Urea Nitrogen) 12 mg/dL (9.8-20.1); Bilirubin, Total 0.3 mg/dL (0.2-1.2); Calc. Creatinine Clearance 0 mL/min (70-130); Calcium 10.1 mg/dL (7.8-10.44); Carbon Dioxide 26 mmol/L (23-31); Chloride 100 mmol/L (98-107); Estimated GFR-MDRD 65; Globulin 3.8 g/dL (2.4-3.5); Glucose 110 mg/dL (80-115); Protein, Total 7.8 g/dL (6.0-8.3); Sodium 137 mmol/L (136-145)
== END ==
LOC: MADER/OP 15:06
PROVIDERS: ATTEND Internal Medicine Infectious Disease
DX: L02.211 Cutaneous abscess of abdominal wall (principal); Z88.0 Allergy status to penicillin; Z88.1 Allergy status to other antibiotic agents; Z88.2 Allergy status to sulfonamides; Z88.5 Allergy status to narcotic agent
CPT/HCPCS: 80053; 80202; 85025; 86140; 87086; J3370

== ENCOUNTER → 2020-01-27 | Day surgery (SDC) | payer SELFPAY | LOC: MADER/OP 16:43 | PROVIDERS: ATTEND Internal Medicine Infectious Disease | DX: L02.211 Cutaneous abscess of abdominal wall (principal); Z88.0 Allergy status to penicillin; Z88.1 Allergy status to other antibiotic agents; Z88.2 Allergy status to sulfonamides; Z88.5 Allergy status to narcotic agent | CPT/HCPCS: J3370 ==

== ENCOUNTER → 2020-01-30 | Day surgery (SDC) | payer SELFPAY | LOC: MADER/OP 20:43 | PROVIDERS: ATTEND Internal Medicine Infectious Disease | DX: L02.211 Cutaneous abscess of abdominal wall (principal); Z88.0 Allergy status to penicillin; Z88.1 Allergy status to other antibiotic agents; Z88.2 Allergy status to sulfonamides; Z88.5 Allergy status to narcotic agent | CPT/HCPCS: J3370 ==

== ENCOUNTER → 2020-02-02 | Day surgery (SDC) | payer SELFPAY ==
[2020-02-02 18:16] LABS: #Basophils 0.1 thou/uL (0.0-0.2); #Lymphocytes 1.6 thou/uL (1.20-3.40); #Neutrophils 10.1 thou/uL (1.40-6.50); %Basophils 0.7 % (0.0-1.0); %Eosinophils 0.3 % (0.0-10.0); %Lymphocytes 12.7 % (21.0-51.0); %Monocytes 7.7 % (0.0-10.0); %Neutrophils 78.6 % (42.0-75.0); Hemoglobin 13.5 g/dL (12.0-16.0); Mean Corpuscular HGB CONC 31.8 g/dL (32.0-36.0); Mean Corpuscular Volume 94.5 fL (78.0-98.0); Mean Platelet Volume 5.6 fL (7.4-10.4); Platelet Count 384 thou/uL (130-400); RBC Distribution Width 12.5 % (11.5-14.5); White Blood Cell (WBC) Count 12.8 thou/uL (4.8-10.8)
[2020-02-02 18:27] LABS: Vancomycin, Trough 9.3 ug/mL
[2020-02-02 18:32] LABS: ALT (SGPT) 15 U/L (8-55); AST (SGOT) 19 U/L (5-34); Alkaline Phosphatase 111 U/L (40-110); Anion Gap 15 mmol/L (10-20); BUN (Urea Nitrogen) 14 mg/dL (9.8-20.1); Bilirubin, Total 0.3 mg/dL (0.2-1.2); CRP (Inflammatory) 1.47 mg/dL (= or < 0.5); Calc. Creatinine Clearance 0 mL/min (70-130); Calcium 9.9 mg/dL (7.8-10.44); Carbon Dioxide 27 mmol/L (23-31); Chloride 99 mmol/L (98-107); Estimated GFR-MDRD 84; Globulin 3.9 g/dL (2.4-3.5); Glucose 105 mg/dL (80-115); Potassium 3.9 mmol/L (3.5-5.1); Protein, Total 7.9 g/dL (6.0-8.3); Sodium 137 mmol/L (136-145)
== END ==
LOC: MADLAB 00:43
PROVIDERS: ATTEND Internal Medicine Infectious Disease
DX: L02.211 Cutaneous abscess of abdominal wall (principal); Z88.0 Allergy status to penicillin; Z88.1 Allergy status to other antibiotic agents; Z88.2 Allergy status to sulfonamides; Z88.5 Allergy status to narcotic agent
CPT/HCPCS: 36415; 80053; 80202; 85025; 86140; J3370

== ENCOUNTER → 2020-02-02 | Day surgery (SDC) | payer SELFPAY | LOC: MADLAB 17:42 | PROVIDERS: ATTEND Internal Medicine Infectious Disease | DX: L02.211 Cutaneous abscess of abdominal wall (principal); Z88.0 Allergy status to penicillin; Z88.1 Allergy status to other antibiotic agents; Z88.2 Allergy status to sulfonamides; Z88.5 Allergy status to narcotic agent | CPT/HCPCS: J3370 ==

== ENCOUNTER 2021-04-05 00:17 | Emergency (ER) | payer OTHER ==
[2021-04-05 15:30] LABS: SARS-CoV-2 PCR by NAA DETECTED (NotDetected)
== END 2021-04-05 00:50 | disposition home or self-care (01) ==
LOC: MADERS 00:17
DX: U07.1 COVID-19 (principal); F17.210 Nicotine dependence, cigarettes, uncomplicated
CPT/HCPCS: 99283; U0003; U0005

== ENCOUNTER 2021-05-21 20:44 | Emergency (ER) | payer OTHER ==
[2021-05-21] MEDS ORDERED: predniSONE 20 MG TAB ONE (22:09)
[2021-05-21] MEDS ORDERED: Albuterol Sulfate 2.5 mg/0.5 ml Neb ONE (22:09)
[2021-05-21] MEDS ORDERED: predniSONE 10 MG TAB ONE (22:09)
[2021-05-21] MEDS ORDERED: Ipratropium Bromide 2.5 ml Neb ONE (22:15)
[2021-05-22] MEDS ORDERED: Albuterol 200 PUFF (6.7GM INHALER) ONE ×2 (00:18→00:26)
== END 2021-05-22 00:32 | disposition home or self-care (01) ==
LOC: MADERS 20:44
DX: J42 Unspecified chronic bronchitis (principal); F17.210 Nicotine dependence, cigarettes, uncomplicated; Z86.73 Personal history of transient ischemic attack (TIA), and cerebral infarction without residual deficits
CPT/HCPCS: 71046; J7512; J7611

== ENCOUNTER 2023-05-25 12:34 | Inpatient (IN) | payer MEDICARE ==
[2023-05-25] MEDS ORDERED: Morphine 2 MG/ML SYRINGE SLOW IVP PRN (16:14)
[2023-05-25] MEDS: Ascorbic Acid 500 mg Chewable Tablet PO SCH (20:29)
[2023-05-25] MEDS: Ferrous Sulfate 325 MG TAB PO SCH (20:30)
[2023-05-25] MEDS: Aspirin 81 mg Enteric Coated Tablet PO SCH (20:30)
[2023-05-25] MEDS: Gabapentin 100 MG CAP PO SCH (20:30)
[2023-05-25] MEDS: Ibuprofen 200 MG TAB PO PRN (20:33)
[2023-05-25] MEDS: Morphine 2 MG/ML VIAL IM PRN (21:21)
[2023-05-26] MEDS: ALPRAZolam 0.25 MG TAB PO PRN ×2 (08:06→20:22)
[2023-05-26] MEDS: Gabapentin 100 MG CAP PO SCH ×4 (09:54→20:31)
[2023-05-26] MEDS: Aspirin 81 mg Enteric Coated Tablet PO SCH ×2 (09:54→20:22)
[2023-05-26] MEDS: Ascorbic Acid 500 mg Chewable Tablet PO SCH ×2 (09:54→20:22)
[2023-05-26] MEDS: Ferrous Sulfate 325 MG TAB PO SCH ×3 (09:55→20:32)
[2023-05-26] MEDS: traMADol HCl 50 MG TAB PO PRN (10:32)
[2023-05-26] MEDS: Bisacodyl 5 MG TAB PO PRN (11:59)
[2023-05-26] MEDS: Ondansetron ODT 4 MG TAB PO PRN ×2 (13:19→23:13)
[2023-05-26] MEDS: Ibuprofen 200 MG TAB PO PRN (17:55)
[2023-05-26] MEDS: Morphine 2 MG/ML VIAL IM PRN (23:13)
[2023-05-27] MEDS: Gabapentin 100 MG CAP PO SCH ×3 (09:31→20:01)
[2023-05-27] MEDS: Ferrous Sulfate 325 MG TAB PO SCH ×2 (09:31→20:00)
[2023-05-27] MEDS: Aspirin 81 mg Enteric Coated Tablet PO SCH ×2 (09:31→20:03)
[2023-05-27] MEDS: Ascorbic Acid 500 mg Chewable Tablet PO SCH ×2 (09:32→20:02)
[2023-05-27] MEDS ORDERED: Albuterol 200 PUFF (6.7GM INHALER) INH PRN (14:13)
[2023-05-27] MEDS: Ibuprofen 200 MG TAB PO PRN (17:49)
[2023-05-27] MEDS: ALPRAZolam 0.25 MG TAB PO PRN (20:02)
[2023-05-27] MEDS: Morphine 2 MG/ML VIAL IM PRN (20:02)
[2023-05-28] MEDS: Ibuprofen 200 MG TAB PO PRN ×2 (05:09→18:14)
[2023-05-28] MEDS: Gabapentin 100 MG CAP PO SCH ×2 (09:05→15:56)
[2023-05-28] MEDS: Ferrous Sulfate 325 MG TAB PO SCH ×2 (09:05→20:03)
[2023-05-28] MEDS: traMADol HCl 50 MG TAB PO PRN ×2 (09:05→20:02)
[2023-05-28] MEDS: Aspirin 81 mg Enteric Coated Tablet PO SCH ×2 (09:05→20:03)
[2023-05-28] MEDS: Ascorbic Acid 500 mg Chewable Tablet PO SCH ×2 (09:05→20:03)
[2023-05-28] MEDS: ALPRAZolam 0.25 MG TAB PO PRN ×2 (09:14→18:14)
[2023-05-28] MEDS: Bisacodyl 5 MG TAB PO PRN (16:49)
[2023-05-28] MEDS: Morphine 2 MG/ML VIAL IM PRN (20:01)
[2023-05-29] MEDS: Ibuprofen 200 MG TAB PO PRN ×2 (04:37→12:58)
[2023-05-29] MEDS: ALPRAZolam 0.25 MG TAB PO PRN ×2 (04:37→19:58)
[2023-05-29] MEDS: Ascorbic Acid 500 mg Chewable Tablet PO SCH ×2 (09:12→19:59)
[2023-05-29] MEDS: Ferrous Sulfate 325 MG TAB PO SCH ×2 (09:12→19:59)
[2023-05-29] MEDS: Aspirin 81 mg Enteric Coated Tablet PO SCH ×2 (09:12→19:59)
[2023-05-29] MEDS: Bisacodyl 5 MG TAB PO PRN (17:28)
[2023-05-29] MEDS: Morphine 2 MG/ML VIAL IM PRN (19:58)
[2023-05-30] MEDS: Ibuprofen 200 MG TAB PO PRN ×2 (00:36→09:02)
[2023-05-30] MEDS: traMADol HCl 50 MG TAB PO PRN ×2 (04:30→13:32)
[2023-05-30] MEDS: ALPRAZolam 0.25 MG TAB PO PRN ×2 (04:31→13:32)
[2023-05-30 07:22] LABS: Hemoglobin 9.1 g/dL (12.0-16.0); Mean Corpuscular HGB CONC 32.6 g/dL (32.0-36.0); Mean Corpuscular Hemoglobin 31.9 pg (27.0-31.0); Mean Corpuscular Volume 97.7 fl (78.0-98.0); Mean Platelet Volume 5.7 fL (7.4-10.4); Platelet Count 365 10x3/uL (130-400); Red Blood Cell (RBC) Count 2.86 mill/uL (4.20-5.40); White Blood Cell (WBC) Count 5.5 10x3/uL (4.8-10.8)
[2023-05-30 07:37] LABS: Anion Gap 13 mmol/L (10-20); BUN (Urea Nitrogen) 10 mg/dL (9.8-20.1); Calc. Creatinine Clearance 81 mL/min (70-130); Calcium 8.5 mg/dL (7.8-10.44); Carbon Dioxide 25 mmol/L (23-31); Chloride 103 mmol/L (98-107); Estimated GFR 98; Glucose 97 mg/dL (80-115); Sodium 138 mmol/L (136-145)
[2023-05-30] MEDS: Ferrous Sulfate 325 MG TAB PO SCH ×2 (09:02→20:28)
[2023-05-30] MEDS: Ascorbic Acid 500 mg Chewable Tablet PO SCH ×2 (09:03→20:27)
[2023-05-30] MEDS: Aspirin 81 mg Enteric Coated Tablet PO SCH ×2 (09:03→20:27)
[2023-05-30] MEDS ORDERED: Potassium Chloride 20 MEQ TAB PO SCH (11:30)
[2023-05-31] MEDS: traMADol HCl 50 MG TAB PO PRN ×2 (04:57→13:35)
[2023-05-31] MEDS: Ibuprofen 200 MG TAB PO PRN ×3 (04:58→20:56)
[2023-05-31] MEDS: ALPRAZolam 0.25 MG TAB PO PRN ×2 (05:06→20:12)
[2023-05-31] MEDS: Aspirin 81 mg Enteric Coated Tablet PO SCH ×2 (08:22→20:11)
[2023-05-31] MEDS: Potassium Chloride 20 MEQ TAB PO SCH (08:22)
[2023-05-31] MEDS: Ferrous Sulfate 325 MG TAB PO SCH ×2 (08:23→20:11)
[2023-05-31] MEDS: Ascorbic Acid 500 mg Chewable Tablet PO SCH ×2 (08:23→20:11)
[2023-05-31] MEDS ORDERED: Morphine 2 MG/ML SYRINGE IM PRN (18:04)
[2023-06-01] MEDS: Ascorbic Acid 500 mg Chewable Tablet PO SCH ×2 (07:49→21:39)
[2023-06-01] MEDS: Potassium Chloride 20 MEQ TAB PO SCH (07:49)
[2023-06-01] MEDS: traMADol HCl 50 MG TAB PO PRN ×2 (07:49→17:19)
[2023-06-01] MEDS: Ibuprofen 200 MG TAB PO PRN ×2 (07:51→21:44)
[2023-06-01] MEDS: Ferrous Sulfate 325 MG TAB PO SCH ×3 (07:51→21:44)
[2023-06-01] MEDS: Aspirin 81 mg Enteric Coated Tablet PO SCH ×2 (07:51→21:39)
[2023-06-01] MEDS: ALPRAZolam 0.25 MG TAB PO PRN ×2 (10:07→21:38)
[2023-06-01 15:54] VITALS: BMI 21.2
[2023-06-01] MEDS: Morphine 2 MG/ML VIAL IM PRN (21:39)
[2023-06-02] MEDS: Ibuprofen 200 MG TAB PO PRN ×3 (06:04→22:31)
[2023-06-02] MEDS: traMADol HCl 50 MG TAB PO PRN ×2 (06:04→13:30)
[2023-06-02 06:18] LABS: Anion Gap 14 mmol/L (10-20); BUN (Urea Nitrogen) 12 mg/dL (9.8-20.1); Calc. Creatinine Clearance 80 mL/min (70-130); Calcium 9.1 mg/dL (7.8-10.44); Carbon Dioxide 26 mmol/L (23-31); Chloride 103 mmol/L (98-107); Estimated GFR 97; Glucose 103 mg/dL (80-115); Potassium 4.1 mmol/L (3.5-5.1); Sodium 139 mmol/L (136-145)
[2023-06-02] MEDS: ALPRAZolam 0.25 MG TAB PO PRN ×2 (08:14→22:29)
[2023-06-02] MEDS: Ferrous Sulfate 325 MG TAB PO SCH ×2 (08:14→22:30)
[2023-06-02] MEDS: Potassium Chloride 20 MEQ TAB PO SCH (08:14)
[2023-06-02] MEDS: Aspirin 81 mg Enteric Coated Tablet PO SCH ×2 (08:14→22:29)
[2023-06-02] MEDS: Ascorbic Acid 500 mg Chewable Tablet PO SCH ×2 (08:16→22:30)
[2023-06-02] MEDS ORDERED: Mag-Al Plus 1200 MG/1200 MG/120 MG/30 ML UDCUP PO PRN (14:05)
[2023-06-02] MEDS: Morphine 2 MG/ML VIAL IM PRN (22:30)
[2023-06-03] MEDS: traMADol HCl 50 MG TAB PO PRN ×3 (05:59→21:47)
[2023-06-03] MEDS: Ibuprofen 200 MG TAB PO PRN ×2 (06:00→13:42)
[2023-06-03] MEDS: Ferrous Sulfate 325 MG TAB PO SCH ×2 (08:49→21:35)
[2023-06-03] MEDS: Aspirin 81 mg Enteric Coated Tablet PO SCH ×2 (08:52→21:35)
[2023-06-03] MEDS: Potassium Chloride 20 MEQ TAB PO SCH (08:52)
[2023-06-03] MEDS: ALPRAZolam 0.25 MG TAB PO PRN ×2 (08:54→17:57)
[2023-06-03] MEDS: Ascorbic Acid 500 mg Chewable Tablet PO SCH ×2 (08:54→21:35)
[2023-06-03] MEDS: Cephalexin 500 MG CAP PO SCH (15:57)
[2023-06-03] MEDS: Morphine 2 MG/ML VIAL IM PRN (21:48)
[2023-06-04] MEDS: Cephalexin 500 MG CAP PO SCH ×3 (00:21→13:31)
[2023-06-04 07:04] VITALS: BP 134/83; TEMP 98.5
[2023-06-04] MEDS: Ferrous Sulfate 325 MG TAB PO SCH (08:52)
[2023-06-04] MEDS: Aspirin 81 mg Enteric Coated Tablet PO SCH (08:52)
[2023-06-04] MEDS: Potassium Chloride 20 MEQ TAB PO SCH (08:52)
[2023-06-04] MEDS: Ascorbic Acid 500 mg Chewable Tablet PO SCH (08:52)
[2023-06-04] MEDS: ALPRAZolam 0.25 MG TAB PO PRN (09:21)
[2023-06-04] MEDS: Ibuprofen 200 MG TAB PO PRN (09:21)
[2023-06-04] MEDS: traMADol HCl 50 MG TAB PO PRN (09:21)
== END 2023-06-04 14:29 | disposition home or self-care (01) | DRG 561 ==
LOC: MADMS 13:40
PROVIDERS: ADMIT Emergency Medicine; ATTEND Family Medicine
DX: S72.142D Displaced intertrochanteric fracture of left femur, subsequent encounter for closed fracture with routine healing (principal); F41.9 Anxiety disorder, unspecified; E87.6 Hypokalemia; W19.XXXD Unspecified fall, subsequent encounter; Z98.890 Other specified postprocedural states; Z93.3 Colostomy status; D64.89 Other specified anemias
CPT/HCPCS: 36415; 80048; 85027; J2270; J2272; J7611; Q0162

== ENCOUNTER 2025-04-09 22:13 | Emergency (ER) | payer MEDICARE, SELFPAY ==
[2025-04-09 22:39] LABS: Hematocrit 44.3 % (36.0-47.0); Hemoglobin 14.5 g/dL (12.0-16.0); MDiff Complete? YES; Mean Corpuscular Hemoglobin 28.4 pg (27.0-31.0); Mean Corpuscular Volume 86.6 fl (78.0-98.0); Platelet Count 281 10x3/uL (130-400); Red Blood Cell (RBC) Count 5.12 mill/uL (4.20-5.40); White Blood Cell (WBC) Count 5.2 10x3/uL (4.8-10.8)
[2025-04-09 22:55] LABS: ALT (SGPT) 13 U/L (Less than 34); AST (SGOT) 23 U/L (11-34); Albumin 4.2 g/dL (3.1-4.5); Alkaline Phosphatase 87 U/L (40-110); Anion Gap 19 mmol/L (10-20); BUN (Urea Nitrogen) 10 mg/dL (9.8-20.1); Bilirubin, Total 0.3 mg/dL (0.3-1.2); Calc. Creatinine Clearance 0 mL/min (70-130); Calcium 9.1 mg/dL (7.8-10.44); Carbon Dioxide 26 mmol/L (23-31); Chloride 95 mmol/L (98-107); Globulin 3.5 g/dL (2.4-3.5); Glucose 110 mg/dL (80-115); Magnesium 2.1 mg/dL (1.6-2.6); Sodium 137 mmol/L (136-145)
[2025-04-09 22:56] LABS: Potassium 2.5 mmol/L (3.5-5.1)
[2025-04-09] MEDS ORDERED: Potassium Chloride 20 MEQ (100 mL) BAG ONE (23:17)
== END 2025-04-10 00:19 | disposition home or self-care (01) ==
LOC: MADERS 22:13
DX: E87.6 Hypokalemia (principal); R19.7 Diarrhea, unspecified; F17.210 Nicotine dependence, cigarettes, uncomplicated; K57.92 Diverticulitis of intestine, part unspecified, without perforation or abscess without bleeding; K51.90 Ulcerative colitis, unspecified, without complications; N81.4 Uterovaginal prolapse, unspecified; N26.1 Atrophy of kidney (terminal); Z86.73 Personal history of transient ischemic attack (TIA), and cerebral infarction without residual deficits
CPT/HCPCS: 36415; 80053; 83735; 85025; 93005; 94760; 96365; J3480